=== PATIENT | female | born 1965 | race Caucasian/White ===

== ENCOUNTER → 2017-08-02 | Outpatient (CLI) | payer BC | LOC: BMCIMAGING 13:11 | PROVIDERS: ATTEND Obstetrics & Gynecology | DX: N92.4 Excessive bleeding in the premenopausal period (principal); R93.8 Abnormal findings on diagnostic imaging of other specified body structures ==

== ENCOUNTER 2017-08-05 08:57 | Emergency (ER) | payer BC ==
--- NOTE | 2017-08-05 09:23 | EDPHY ---
HPI/HX/ROS/PE/MDM Narrative: CHIEF COMPLAINT: Gastrointestinal upset. HISTORY OF PRESENT ILLNESS: This patient is a 51 year old female arriving with her complaining of dry heaving and diarrhea. One month ago, had ceviche for dinner and had fever vomiting and diarrhea following. She has had gastrointestinal discomfort since that time including severe abdominal pain, frequent belching. She travelled to [facility] recently and returned home a few days ago. She felt ill throughout her trip including frequent belching, diarrhea, flatulence, lack of appetite. One day of high fever. Malaria prophylaxis not required, patient denies any swimming or known ill contacts. Her , travelling with her, had no similar symptoms. Patient's PCP took a fecal sample and prescribed Augmentin. She vomited after taking this medication around 11:30pm and again this morning. She has been dry heaving since. Denies any blood in her stool or emesis. She has not followed up with GI specialist. She endorses frequent hot flashes and chills, but denies measured fever. Has had productive cough which resolves after decongestant use. No chest pain, shortness of breath, palpitations, urinary complaints, headache, lightheadedness. REVIEW OF SYSTEMS: Aside from elements discussed in the HPI, a comprehensive 10-point review of systems was reviewed and is negative. PAST MEDICAL HISTORY: "Poor functioning gallbladder". Past medical records reviewed including testing by patient's primary care provider. No ovum parasites, cryptosporidium, entamoeba histolytica, H. Pylori. Possible klebsiella. SOCIAL HISTORY: . at bedside. VITAL SIGNS: Reviewed by me GENERAL: Well-developed, well-nourished, resting comfortably in no respiratory distress. HEENT: Atraumatic. Eyes: No icterus, no injection. Mouth: moist mucous membranes. No erythema or lesions. Neck: supple with no adenopathy. LUNGS: Clear to auscultation bilaterally, no wheezes, rhonchi or rales. CARDIAC: Mild tachycardia. no rubs, murmurs or gallops. ABDOMEN: Soft, nontender, nondistended, bowel sounds normal. BACK: No CVA tenderness. EXTREMITIES: No trauma. No edema. Range of motion is normal throughout. NEURO: Alert and oriented, grossly nonfocal. SKIN: Warm and dry, no rash. PSYCHIATRIC: Normal mentation, no agitation. Portions of this note were transcribed by a veterinary medical officer. I personally performed a history, physical exam, medical decision making, and confirmed accuracy of information the transcribed note. ED Course: 51 y/o female presents with one month history of gastrointestinal discomfort. Exam unremarkable, no scleral icterus. Plan for labs including CBC, chemistries , liver, lipase, H. Pylori, occult blood. Plan to administer 4mg IV Zofran, 1L IV NS. Laboratory studies reviewed. Occult blood negative. AST elevated. Plan for US abdomen. 10:[address] Gonzalez, radiologist. No acute findings on abdominal US. Incidental finding :1.9 cm simple cyst in the midpole of the right kidney. Reassessed patient. Plan to discharge home in good condition. Stool studies for GI pathogens have been ordered including Clostridium difficile as well as Salmonella, Shigella, Campylobacter. She will call for results. Referral to gastroenterology given. Return precautions discussed. She is comfortable with this plan. Patient called after arriving home. Her GI pathogen panel is positive for Yersinia. Negative for Clostridium difficile. I discussed with the patient that given her complaints of a month of diarrhea, no fevers, and no significant abdominal tenderness, I do not believe treatment for Yersinia is warranted. I also did discuss the GI pathogen panel results with Dr. Evan Murray from Infectious Disease. Patient will follow up with her primary care physician as directed. MDM: Differential diagnosis for the patient's presenting complaint was considered including but not limited to gastroenteritis, colitis, diverticulitis, bacterial dysentery, viral diarrhea, medication effect from the antibiotics, and malabsorption syndrome. - Data Points Imaging Results: RUQ U/S Impression: 1. Normal appearance of the gallbladder, with no cholelithiasis, cholecystitis, or bile duct dilatation. If there is further clinical concern regarding the possibility of gallbladder dyskinesia , a nuclear medicine hepatobiliary scan with gallbladder ejection fraction could be considered. 2. There is a 1.9 cm simple cyst in the midpole of the right kidney. Findings were discussed with Keena Modi PA-C, who will convey the information to Nicole David MD at 10:46, on 08/05/2017. Imaging: Discussed imaging studies w/ call manager Radiologist Laboratory Results: Laboratory Results 08/05/17 09:15 08/05/17 09:15 Medications Given: Discontinued Medications Sodium Chloride (Ns) 1,000 mls @ 0 mls/hr IV ONCE ONE; Wide Open PRN Reason: Protocol Stop: 08/05/17 09:29 Last Admin: 08/05/17 09:35 Dose: 1,000 mls Sodium Chloride (Ns) 1,000 mls @ 0 mls/hr IV ONCE ONE PRN Reason: Wide Open Stop: 08/05/17 10:23 Last Admin: 08/05/17 10:25 Dose: 1,000 mls Ondansetron HCl (Zofran) 4 mg IVP EDNOW ONE Stop: 08/05/17 09:29 Last Admin: 08/05/17 09:35 Dose: 4 mg Microbiology Results: MICROBIOLOGY 08/05/17 11:05 Stool Gastrointestinal Tract Panel (PCR) - Final Yersinia Enterocolitica Grp 08/05/17 11:05 Stool Stool Culture - Preliminary Yersinia Enterocolitica Group General Time Seen by Provider: 08/05/17 09:13 Initial Vital Signs: Initial Vital Signs Temperature (C) 36.9 C 08/05/17 09:04 Heart Rate 112 H 08/05/17 09:04 Respiratory Rate 16 08/05/17 09:04 Blood Pressure 122/91 H 08/05/17 09:04 O2 Sat (%) 94 08/05/17 09:04 O2 Delivery Mode Room Air Allergies/Adverse Reactions: ciprofloxacin Allergy (Verified 08/05/17 09:03) Sulfa (Sulfonamide Antibiotics) Allergy (Verified 08/05/17 09:02) Home Medications: Medication Instructions Recorded Amox Tr/Potas Clav 200/5 08/05/17 Levothyroxine 08/05/17 Ondansetron Odt [Zofran Odt 4 mg 4 mg PO Q6 PRN #8 tab 08/05/17 (RX)] Departure - Departure Disposition: Home, Routine, Self-Care Clinical Impression: Diarrhea, Dehydration Condition: Good Instructions: Dehydration (ED), Chronic Diarrhea (ED) Additional Instructions: Stool studies for GI pathogens have been ordered. These include Clostridium difficile as well as Salmonella, Shigella, Campylobacter, etc. You may call the emergency department and 2-3 hours to obtain those results. Please drink plenty of fluid, small, frequent sips. You may use Zofran as needed for for ongoing nausea and vomiting. If you continue to take the Augmentin, I suggest you take it with food or with Maalox and Mylanta. Please follow up with Gastroenterology. HIDA scan may be needed to address your gallbladder issues. Referrals: Yonatan Sue MD [Medical Doctor] - As per Instructions Prescriptions: Ondansetron Odt [Zofran Odt 4 mg (RX)] 4 mg PO Q6 PRN #8 tab PRN Reason: Nausea Report Scribed for: Nicole David Report Scribed by: Freda Gamez Date of Report: 08/05/17 Time of Report: 09:23
[2017-08-05] MEDS ORDERED: NS 1,000 ML IV ONE ×2 (09:28→10:22)
[2017-08-05] MEDS ORDERED: ONDANSETRON 4 MG/2 ML VIAL IVP ONE (09:28)
[2017-08-05 09:37] LABS: PLATELET COUNT 403 10^3/uL (150-400)
[2017-08-05 11:38] VITALS: BP 108/66
== END 2017-08-05 11:40 | disposition home or self-care (01) ==
DX: R19.7 Diarrhea, unspecified (principal); E86.0 Dehydration; E86.9 Volume depletion, unspecified
CPT/HCPCS: 96374; J2405

== ENCOUNTER → 2018-01-27 | Outpatient (CLI) | payer BC | LOC: BMCIMAGING 08:26 | DX: Z12.31 Encounter for screening mammogram for malignant neoplasm of breast (principal); Z80.3 Family history of malignant neoplasm of breast ==